=== PATIENT | female | born 1995 | race Caucasian/White ===

== ENCOUNTER 2017-06-16 08:40 | Emergency (ER) | payer BC ==
[2017-06-16 08:57] VITALS: BP 127/75
--- NOTE | 2017-06-16 09:23 | UC ---
Throat Pain/Nasal Jitendra HPI - HPI Summary HPI Summary: sore throat since yesterday. - History of Current Complaint Chief Complaint: UCRespiratory Stated Complaint: SORE THROAT EARS Time Seen by Provider: 06/16/17 09:01 Hx Obtained From: Patient Hx Last Menstrual Period: 06/14/17 ?: No Onset/Duration: Gradual Onset, Lasting Hours Severity: Moderate Cough: None Associated Signs & Symptoms: Positive: Dysphagia. Negative: FB Sensation, Drooling, Wheezing, Hoarseness, Sinus Discomfort, Nasal Discharge, Fever, Vomiting, Rash - Epiglottits Risk Factors Epiglottis Risk Factors: Negative - Allergies/Home Medications Allergies/Adverse Reactions: Allergies Allergy/AdvReac Type Severity Reaction Status Date / Time No Known Allergies Allergy Verified 06/16/17 08:49 Home Medications: Home Medications Zivscjz-Uusfphyookfqo-Nugegfvw [Excedrin Migraine] 1 tab PO ONCE PRN 06/16/17 [ History Confirmed 06/16/17] Phenol 1.4% [place]* [Chloroseptic Throat [place]*] 1 spray MT Q2H PRN 06/16/17 [ History Confirmed 06/16/17] PMH/Surg Hx/FS Hx/Imm Hx Previously Healthy: Yes - Surgical History Surgical History: None Surgery Procedure, Year, and Place: denies - Family History Known Family History: Positive: None - Social History Alcohol Use: Weekly Substance Use Type: None Smoking Status (MU): Never Smoked Tobacco Review of Systems ENT: Sore Throat All Other Systems Reviewed And Are Negative: Yes Physical Exam Triage Information Reviewed: Yes Appearance: Well-Appearing, Well-Nourished, Obese Vital Signs: Initial Vital Signs Temp 98.3 F 06/16/17 08:53 Pulse 116 06/16/17 08:53 Resp 18 06/16/17 08:53 BP 127/75 06/16/17 08:53 Pulse Ox 99 06/16/17 08:53 Vital Signs Reviewed: Yes Eyes: Positive: Conjunctiva Clear ENT: Positive: Pharyngeal erythema, Nasal drainage, TMs normal. Negative: Nasal congestion, Tonsillar swelling, Tonsillar exudate, Trismus Neck exam: Normal Neck: Positive: Supple, Nontender, Enlarged Nodes @ - left submandibular swelling without redness or tenderness. Respiratory: Positive: Lungs clear, Normal breath sounds, No respiratory distress, No accessory muscle use. Negative: Respiratory distress, Crackles, Rhonchi, Stridor, Wheezing, Expiration, Inspiration Cardiovascular Exam: Normal Cardiovascular: Positive: RRR, No Murmur, Pulses Normal, Brisk Capillary Refill Abdomen Description: Positive: Nontender, No Organomegaly, Soft Musculoskeletal: Positive: Strength Intact, ROM Intact, No Edema Neurological: Positive: Alert, Muscle Tone Normal. Negative: Fatigued Skin: Negative: rashes Throat Pain/Nasal Course/Dx - Course Course Of Treatment: no exudate, no fever. strep neg. - Differential Dx/Diagnosis Provider Diagnoses: viral pharyngitis. Discharge - Discharge Plan Condition: Good Disposition: HOME Patient Education Materials: Upper Respiratory Infection (ED), Pharyngitis (ED) Referrals: Non Staff,Doctor [Primary Care Provider] -
== END 2017-06-16 09:29 | disposition home or self-care (01) ==
LOC: UCCORT 08:40
DX: J02.9 Acute pharyngitis, unspecified (principal); E66.9 Obesity, unspecified
CPT/HCPCS: 87651; 99211; G0463

== ENCOUNTER 2018-04-30 13:03 | Emergency (ER) | payer BC ==
[2018-04-30 13:29] VITALS: BP 136/84
--- NOTE | 2018-04-30 13:52 | UC ---
Skin Complaint HPI - HPI Summary HPI Summary: pt notes several bites to her lower legs and feet over the past 2 weeks. her office at work is carpeted. she did find a tiny black insect on her but it sprung away when she went to show a coworker. no one at home has the rash. it is severely itchy. she is bombing the office today. - History of Current Complaint Chief Complaint: UCSkin Time Seen by Provider: 04/30/18 13:45 Stated Complaint: SKIN COMPLAINT Hx Obtained From: Patient Hx Last Menstrual Period: 04/18/18 Onset/Duration: Gradual Onset Timing: Constant Pain Intensity: 0 Alleviating Factor(s): Nothing - Allergy/Home Medications Allergies/Adverse Reactions: Allergies Allergy/AdvReac Type Severity Reaction Status Date / Time No Known Allergies Allergy Verified 04/30/18 13:25 Review of Systems Constitutional: Negative Skin: Rash Eyes: Negative ENT: Negative Respiratory: Negative Cardiovascular: Negative Gastrointestinal: Negative Genitourinary: Negative Motor: Negative Neurovascular: Negative Musculoskeletal: Negative Neurological: Negative Psychological: Negative Is Patient Immunocompromised?: No All Other Systems Reviewed And Are Negative: Yes PMH/Surg Hx/FS Hx/Imm Hx Previously Healthy: Yes - Surgical History Surgical History: None Surgery Procedure, Year, and Place: denies - Family History Known Family History: Positive: None - Social History Occupation: Employed Full-time Lives: With Family Alcohol Use: Occasionally Substance Use Type: None Smoking Status (MU): Never Smoked Tobacco - Immunization History Vaccination Up to Date: Yes Physical Exam Triage Information Reviewed: Yes Appearance: Well-Appearing Vital Signs: Initial Vital Signs Temp 99.0 F 04/30/18 13:22 Pulse 96 04/30/18 13:22 Resp 15 04/30/18 13:22 BP 136/84 04/30/18 13:22 Pulse Ox 100 04/30/18 13:22 Vital Signs Reviewed: Yes Eyes: Positive: Conjunctiva Clear ENT: Positive: Normal ENT inspection Neck: Positive: Supple, Nontender, No Lymphadenopathy Respiratory: Positive: Lungs clear, Normal breath sounds Cardiovascular: Positive: RRR, No Murmur Abdomen Description: Positive: Nontender, No Organomegaly, Soft Bowel Sounds: Positive: Present Musculoskeletal: Positive: ROM Intact Neurological: Positive: Alert Psychological: Positive: Age Appropriate Behavior Skin Exam: Normal, Other - multiple bites to BLE's below the knees with excoriations. Course/Dx - Course Course Of Treatment: no concern for secondary infection. since may bites and intense itching, will tx medrol dose niki. - Diagnoses Provider Diagnoses: Insect bites BLE's. Discharge - Sign-Out/Discharge Documenting (check all that apply): Patient Departure - Discharge Plan Condition: Critical Disposition: HOME Prescriptions: methylPREDNISolone [Medrol Dosepak 4 MG*] 0 mg PO .SEE NIKI INSTRUCTION #1 tab Patient Education Materials: Insect Bite or Sting (ED) Referrals: LOREN Matthews [Medical Doctor] - - Billing Disposition and Condition Condition: CRITICAL Disposition: Home
== END 2018-04-30 14:07 | disposition home or self-care (01) ==
LOC: UCCORT 13:03
DX: S80.862A Insect bite (nonvenomous), left lower leg, initial encounter (principal); S80.861A Insect bite (nonvenomous), right lower leg, initial encounter; W57.XXXA Bitten or stung by nonvenomous insect and other nonvenomous arthropods, initial encounter; Y93.89 Activity, other specified; Y92.89 Other specified places as the place of occurrence of the external cause; Y99.0 Civilian activity done for income or pay
CPT/HCPCS: 99212; G0463

== ENCOUNTER 2018-11-26 12:45 | Emergency (ER) | payer BC ==
[2018-11-26 13:03] VITALS: BP 118/75
--- NOTE | 2018-11-26 13:05 | UC ---
FLU HPI - HPI Summary HPI Summary: 23-year-old female presents with 2 day history of chills, fatigue, general malaise, body aches, nasal congestion, clear nasal drainage, sore throat, and occasional dry nonproductive cough. Denies ear pain, dysphagia, chest pain, shortness of breath, abdominal pain, nausea, vomiting, or diarrhea. Denies flu shot this year. - History of Current Complaint Stated Complaint: SINUSES Time Seen by Provider: 11/26/18 12:53 Hx Obtained From: Patient Hx Last Menstrual Period: 04/18/18 - Allergy/Home Medications Allergies/Adverse Reactions: Allergies Allergy/AdvReac Type Severity Reaction Status Date / Time No Known Allergies Allergy Verified 11/26/18 12:56 Home Medications: Home Medications D-Methorphan/PE/Acetaminophen [Vicks Dayquil Cold & Flu] 1 cap PO PRN 11/26/18 [ History] Etonogest/Eth.estradiol (Nf) [Nuvaring Vaginal Ring] 11/26/18 [History Confirmed 11/26/18] PMH/Surg Hx/FS Hx/Imm Hx Previously Healthy: Yes - Denies significant PMH - Surgical History Surgical History: None Surgery Procedure, Year, and Place: denies - Family History Known Family History: Positive: Non-Contributory - Social History Occupation: Employed Full-time Lives: Dormitory/Roommates Alcohol Use: Occasionally Substance Use Type: None Smoking Status (MU): Never Smoked Tobacco - Immunization History Vaccination Up to Date: Yes Review of Systems All Other Systems Reviewed And Are Negative: Yes Constitutional: Positive: Chills, Fatigue. Negative: Fever Skin: Negative: Rash Eyes: Negative: Drainage, Eye Redness ENT: Positive: Sore Throat, Nasal Discharge, Sinus Congestion. Negative: Ear Ache, Sinus Pain/Tenderness Respiratory: Positive: Cough. Negative: Shortness Of Breath Cardiovascular: Negative: Palpitations, Chest Pain Gastrointestinal: Negative: Abdominal Pain, Vomiting, Diarrhea, Nausea Genitourinary: Positive: Negative Musculoskeletal: Positive: Myalgia Neurological: Positive: Headache Is Patient Immunocompromised?: No Physical Exam - Summary Physical Exam Summary: GENERAL APPEARANCE: Well developed, well nourished, alert and cooperative, and appears to be in no acute distress. EYES: Conjunctiva clear. No drainage. Vision is grossly intact. EARS: External auditory canals and tympanic membranes clear, hearing grossly intact. NOSE: Mild-moderate nasal congestion. Clear nasal discharge. THROAT: Mild pharyngeal erythema. No tonsilar inflammation, swelling, exudate, or lesions. Uvula midline. Oral cavity normal. Teeth and gingiva in good general condition. NECK: Neck supple, non-tender without lymphadenopathy. CARDIAC: Normal S1 and S2. No S3, S4 or murmurs. Rhythm is regular. There is no peripheral edema, cyanosis or pallor. Extremities are warm and well perfused. Capillary refill is less than 2 seconds. Peripheral pulses intact. LUNGS: Clear to auscultation without rales, rhonchi, wheezing or diminished breath sounds. Dry cough. ABDOMEN: Positive bowel sounds. Soft, nondistended, nontender. No guarding or rebound. No masses or hepatosplenomegally. MUSKULOSKELETAL: ROM intact to all extremities. No joint erythema or tenderness. Normal muscular development. Normal gait. SKIN: Skin normal color, texture and turgor with no lesions or eruptions. Triage Information Reviewed: Yes Vital Signs Reviewed: Yes Flu Course/Dx - Course Course Of Treatment: 23-year-old female presents with 2 day history of chills, fatigue, general malaise, body aches, nasal congestion, clear nasal drainage, sore throat, and occasional dry nonproductive cough. Denies ear pain, dysphagia , chest pain, shortness of breath, abdominal pain, nausea, vomiting, or diarrhea. Denies flu shot this year. Afebrile. Vital signs stable. Exam reveals a young adult female in no acute distress with [id number] nasal congestion, clear nasal discharge, mild pharyngeal erythema without tonsillar swelling or exudate, no cervical lymphadenopathy, clear bilateral breath sounds , a dry nonproductive cough, and otherwise unremarkable exam. Rapid flu test positive influenza A. Discussed risks and benefits of starting Tamiflu with the patient and she has elected to start at this time. I'm also recommending symptomatic treatment. She is to return here or follow up with primary care in 7 days if symptoms do not improve. Anticipatory guidance and warning symptoms reviewed with the patient. Verbalizes understanding and agrees with plan of care. - Differential Dx/Diagnosis Differential Diagnosis/HQI/PQRI: Bronchitis, Influenza, Upper Respiratory Infection Provider Diagnosis: Influenza A Discharge - Sign-Out/Discharge Documenting (check all that apply): Patient Departure All imaging exams completed and their final reports reviewed: No Studies - Discharge Plan Condition: Stable Disposition: HOME Prescriptions: Oseltamivir CAP* [Tamiflu CAP*] 75 mg PO BID #10 cap Patient Education Materials: Influenza (ED) Forms: *Work Release Referrals: No Primary Care Phys,NOPCP [Primary Care Provider] - Additional Instructions: Your flu test in the clinic today was positive for influenza A. Start Tamiflu 1 capsule twice a day for 5 days. Get plenty of rest. Drink plenty of fluids to avoid dehydration especially if you are running any fever. Take over the counter acetaminophen (Tylenol) or ibuprofen (Advil, Motrin) according to directions as needed for pain or fever. Use an over the counter decongestant such as Sudafed according to directions as needed for congestion. Use salt water gargles several times a day if you have a sore throat. You may also use Chloraseptic spray or Cepacol lonzenges according to directions which contain a numbing medication and can provide some temporary relief from your sore throat. Return here or follow up with your primary care provider in 7 days if symptoms persist. Seek immediate medical attention in the emergency room if you have fever greater than 100.5 F despite taking acetaminophen or ibuprofen, have chest pain , difficulty breathing, are unable to swallow, or have any worsening of symptoms. - Billing Disposition and Condition Condition: STABLE Disposition: Home
[2018-11-26 13:21] LABS: Influenza A Molecular POSITIVE (Negative)
== END 2018-11-26 13:36 | disposition home or self-care (01) ==
LOC: UCCORT 12:45
DX: J10.1 Influenza due to other identified influenza virus with other respiratory manifestations (principal)
CPT/HCPCS: 87651; 99212; G0463

== ENCOUNTER 2018-12-07 08:58 | Emergency (ER) | payer BC ==
[2018-12-07 09:25] VITALS: BP 124/81
--- NOTE | 2018-12-07 10:11 | UC ---
Eye Complaint HPI - HPI Summary HPI Summary: Pt c/o sudden onset of right eye redness, yellow/green discharge that began last night. - History of Current Complaint Chief Complaint: UCEye Stated Complaint: PINK EYE Time Seen by Provider: 12/07/18 10:06 Hx Obtained From: Patient Hx Last Menstrual Period: 10/27/18 ?: No Onset/Duration: Sudden Onset, Still Present Timing: Constant Severity Initially: Mild Severity Currently: Mild Pain Intensity: 0 Character: Dull Aggravating Factor(s): Nothing Alleviating Factor(s): Nothing Associated Signs And Symptoms: Positive: Drainage (Purulent) - Risk Factors Penetrating Injury Risk Factor: Negative Acute Glaucoma Risk Factors: Negative Optic Artery Occlusion Risk Factors: Negative - Allergies/Home Medications Allergies/Adverse Reactions: Allergies Allergy/AdvReac Type Severity Reaction Status Date / Time No Known Allergies Allergy Verified 12/07/18 09:23 PMH/Surg Hx/FS Hx/Imm Hx Previously Healthy: Yes - Surgical History Surgical History: None Surgery Procedure, Year, and Place: denies - Family History Known Family History: Positive: Non-Contributory - Social History Occupation: Employed Full-time Lives: With Family Alcohol Use: Occasionally Substance Use Type: None Smoking Status (MU): Never Smoked Tobacco Have You Smoked in the Last Year: No - Immunization History Vaccination Up to Date: Yes Review of Systems All Other Systems Reviewed And Are Negative: Yes Constitutional: Positive: Negative Skin: Positive: Negative Eyes: Positive: Drainage, Eye Redness ENT: Positive: Negative Respiratory: Positive: Negative Cardiovascular: Positive: Negative Gastrointestinal: Positive: Negative Genitourinary: Positive: Negative Motor: Positive: Negative Neurovascular: Positive: Negative Musculoskeletal: Positive: Negative Neurological: Positive: Negative Psychological: Positive: Negative Is Patient Immunocompromised?: No Physical Exam Triage Information Reviewed: Yes Appearance: Well-Appearing Vital Signs: Initial Vital Signs Temp 97.6 F 12/07/18 09:23 Pulse 96 12/07/18 09:23 Resp 15 12/07/18 09:23 BP 124/81 12/07/18 09:23 Pulse Ox 99 12/07/18 09:23 Vital Signs Reviewed: Yes Eyes: Positive: Conjunctiva Inflamed, Discharge ENT Exam: Normal Dental Exam: Normal Neck exam: Normal Respiratory Exam: Normal Cardiovascular Exam: Normal Musculoskeletal Exam: Normal Neurological Exam: Normal Psychological Exam: Normal Skin Exam: Normal Eye Complaint Course/Dx - Differential Dx/Diagnosis Differential Diagnosis/HQI/PQRI: Conjunctivitis, Corneal Abrasion Provider Diagnosis: Conjunctivitis, right eye Discharge - Sign-Out/Discharge Documenting (check all that apply): Patient Departure All imaging exams completed and their final reports reviewed: No Studies - Discharge Plan Condition: Stable Disposition: HOME Prescriptions: Ofloxacin 0.3% (Eye Drop) [Ocuflox OPTH 0.3% (Eye Drop)] 2 drop RIGHT EYE Q8H 7 Days #1 btl Patient Education Materials: Conjunctivitis (ED) Referrals: No Primary Care Phys,NOPCP [Primary Care Provider] - [facility] [Outside] - If Needed - Billing Disposition and Condition Condition: STABLE Disposition: Home
== END 2018-12-07 10:20 | disposition home or self-care (01) ==
LOC: UCCORT 08:58
DX: H10.9 Unspecified conjunctivitis (principal)
CPT/HCPCS: 99212; G0463

== ENCOUNTER 2019-08-30 19:20 | Emergency (ER) | payer BC ==
[2019-08-30 19:46] VITALS: BP 122/82
--- NOTE | 2019-08-30 20:35 | UC ---
Throat Pain/Nasal Jitenrda HPI - HPI Summary HPI Summary: Patient is a 24yo female presenting with c/o fever, sore throat, intermittent R ear pain and CORTEZ x2 days. Patient states it "hurts to swallow." She thought she was improving this morning but states pain worsened as the day went on. Notes fever of up to 101 but states she has kept it down by taking dayquil. Denies nasal congestion and cough. Notes fatigue. - History of Current Complaint Chief Complaint: UCGeneralIllness Stated Complaint: FEVER/SORE THROAT/RIGHT EAR PAIN Hx Obtained From: Patient Hx Last Menstrual Period: nuvaring Pain Intensity: 5 - Allergies/Home Medications Allergies/Adverse Reactions: Allergies Allergy/AdvReac Type Severity Reaction Status Date / Time No Known Allergies Allergy Verified 08/30/19 19:46 PMH/Surg Hx/FS Hx/Imm Hx Previously Healthy: Yes - Surgical History Surgical History: None Surgery Procedure, Year, and Place: denies - Family History Known Family History: Positive: Non-Contributory - Social History Alcohol Use: Occasionally Substance Use Type: None Smoking Status (MU): Never Smoked Tobacco Have You Smoked in the Last Year: No - Immunization History Vaccination Up to Date: Yes Review of Systems All Other Systems Reviewed And Are Negative: Yes Constitutional: Positive: Fever, Chills, Fatigue ENT: Positive: Ear Ache - intermittent right Cardiovascular: Positive: Negative Gastrointestinal: Positive: Negative Musculoskeletal: Positive: Negative Neurological: Positive: Headache Physical Exam Triage Information Reviewed: Yes Appearance: Well-Appearing, No Pain Distress, Well-Nourished Vital Signs: Initial Vital Signs Temp 97.1 F 08/30/19 19:43 Pulse 130 08/30/19 19:43 Resp 19 08/30/19 19:43 BP 122/82 08/30/19 19:43 Pulse Ox 98 08/30/19 19:43 Vital Signs Reviewed: Yes Eyes: Positive: Conjunctiva Clear ENT: Positive: Hearing grossly normal, Pharyngeal erythema, TMs normal - TMs intact with normal light reflex and landmarks b/l, Tonsillar swelling, Tonsillar exudate - right sided, Uvula midline Neck: Positive: Supple, Nontender, Enlarged Nodes @ - tonsillar Respiratory Exam: Normal Respiratory: Positive: Lungs clear, Normal breath sounds, No respiratory distress Cardiovascular Exam: Normal Cardiovascular: Positive: RRR Neurological: Positive: Alert Psychological: Positive: Age Appropriate Behavior Skin Exam: Normal Throat Pain/Nasal Course/Dx - Course Course Of Treatment: Negative rapid strep test. Throat swab sent for culture. Informed patient that she would be notified with any results warranting treatment. Instructed to continue symptomatic treatment and follow up if no resolution in 7 days. Patient voiced understanding and agreed with treatment plan. - Differential Dx/Diagnosis Differential Diagnosis/HQI/PQRI: Pharyngitis, Tonsillitis, URI Provider Diagnosis: Exudative pharyngitis Discharge ED - Sign-Out/Discharge Documenting (check all that apply): Patient Departure All imaging exams completed and their final reports reviewed: No Studies - Discharge Plan Condition: Stable Disposition: HOME Patient Education Materials: Pharyngitis (ED) Referrals: [facility] [Outside] - If Needed [facility] [place] [facility]ERR[facility] [Outside] - If Needed Additional Instructions: As discussed, you tested negative for strep throat today. A culture has been sent and you will be notified only if the results warrant treatment. You may take continue to take dayquil and/or nyquil as directed for fever and pain relief. You may use over the counter throat sprays, lozenges, and tea with honey for symptomatic relief. Get plenty of rest and increase your fluid intake. Follow up with your primary care provider or one of the referrals listed below if your symptoms do not resolve within 7 days. Return or go to the emergency room with any new or worsening symptoms, including fever higher than 102. - Billing Disposition and Condition Condition: STABLE Disposition: Home
== END 2019-08-30 20:49 | disposition home or self-care (01) ==
LOC: UCCORT 19:20
DX: J02.9 Acute pharyngitis, unspecified (principal)
CPT/HCPCS: 87070; 87651; 99211; G0463